=== PATIENT | male | born 1940 | race African-American/Black ===

== ENCOUNTER 2020-02-01 14:30 | Observation (INO) ==
[2020-02-01] MEDS ORDERED: INFLUENZA VIRUS VACCINE 0.5 ML SYRINGE IM ONE (17:30)
[2020-02-01] MEDS: DONEPEZIL 5 MG TABLET PO SCH (20:54)
[2020-02-01] MEDS: FLUTICASONE/SALMETEROL 250-50 DISKUS 14 DOSE INH SCH (20:54)
[2020-02-01] MEDS: GABAPENTIN 600 MG TABLET PO SCH (20:54)
[2020-02-01] MEDS ORDERED: rOPINIRole 1 MG TABLET PO SCH (21:00)
[2020-02-01] MEDS: METHOCARBAMOL 500 MG TABLET PO PRN (22:38)
[2020-02-02] MEDS: METOPROLOL TARTRATE 50 MG TABLET PO SCH ×4 (01:04→21:35)
[2020-02-02] MEDS: FLUTICASONE/SALMETEROL 250-50 DISKUS 14 DOSE INH SCH ×2 (08:45→21:33)
[2020-02-02] MEDS: metFORMIN 500 MG TABLET PO SCH ×2 (08:45→17:39)
[2020-02-02] MEDS: GABAPENTIN 600 MG TABLET PO SCH ×3 (08:45→21:33)
[2020-02-02] MEDS ORDERED: METHOCARBAMOL 500 MG TABLET PO PRN (12:18)
[2020-02-02] MEDS ORDERED: ALBUTEROL 2.5 MG/3 ML NEB RESP TX PRN (12:18)
[2020-02-02 12:49] LABS: Basophils % 0.6 % (0.0-0.8); Eosinophils # 0.1 10*3/uL (0.0-0.87); Eosinophils % 1.7 % (0.00-10.9); Hematocrit 38.5 VOL% (42.0-52.0); Hemoglobin 11.5 GM/DL (14.0-18.0); Immature Granulocytes % 0.2 %; Immature Granulocytes Absolute 0.01 #; Lymphocytes # 1.7 10*3/uL (1.4-4.0); Lymphocytes % 35.8 % (21.2-54.2); Mean Corpuscular HGB Conc 29.9 GM/DL (32-36); Mean Corpuscular Volume 68.8 FL (87-102); Monocytes % 12.2 % (1.7-12.7); Neutrophils % 49.5 % (38.7-73.9); Platelet Count 195 T/CUMM (130-400); Red Cell Distribution Width 20.5 % (9.3-17.3); White Blood Count 4.7 T/CUMM (4-12)
[2020-02-02 13:02] LABS: Alanine Aminotransferase 22 U/L (16-61); Albumin 3.6 G/DL (3.4-5.0); Alkaline Phosphatase 51 U/L (45-117); Aspartate Amino Transferase 13 U/L (0-37); Bilirubin,Total < 0.39 MG/DL (0.2-1.0); Blood Urea Nitrogen 20 MG/DL (7-18); Calcium 10.3 MG/DL (8.5-10.1); Estimated Glom Filtration Rate 68 ML/MIN; Glucose 117 MG/DL (74-106); Osmolality,Calculated 286.1 MOS/KG (273-304); Total Protein 7.7 G/DL (6.4-8.3)
[2020-02-02 13:03] LABS: Troponin I 0.017 NG/ML (0.00-0.045)
[2020-02-02] MEDS: amLODIPine 10 MG TABLET PO SCH (13:17)
[2020-02-02] MEDS: ASPIRIN EC 81 MG TABLET PO SCH (13:17)
[2020-02-02] MEDS ORDERED: DEXTROSE 50% 25 GM/50 ML VIAL IV PRN (14:12)
[2020-02-02] MEDS ORDERED: GLUCAGON 1 MG VIAL IM PRN (14:12)
[2020-02-02] MEDS ORDERED: GABAPENTIN 600 MG TABLET PO SCH (15:00)
[2020-02-02 15:29] LABS: % Iron Saturation 5.9 % (18-50); Ferritin 14.4 ng/ml (26-388)
[2020-02-02] MEDS: INSULIN LISPRO 100 UNIT/ML SUBCUT SCH ×2 (15:48→21:36)
[2020-02-02] MEDS ORDERED: FLUTICASONE/SALMETEROL 250-50 DISKUS 14 DOSE INH SCH (21:00)
[2020-02-02] MEDS ORDERED: RIVAROXABAN 20 MG TABLET PO SCH (21:00)
[2020-02-02] MEDS ORDERED: metFORMIN 500 MG TABLET PO SCH (21:00)
[2020-02-02] MEDS ORDERED: rOPINIRole 1 MG TABLET PO SCH (21:00)
[2020-02-02] MEDS: DONEPEZIL 5 MG TABLET PO SCH (21:33)
[2020-02-02] MEDS: METHOCARBAMOL 500 MG TABLET PO PRN (21:34)
[2020-02-02] MEDS: rOPINIRole 1 MG TABLET PO SCH (21:35)
[2020-02-02] MEDS: BRIMONIDINE 0.2% OPH SOLN 5 ML BOTTLE BOTH EYES SCH (22:24)
[2020-02-02] MEDS: DORZOLAMIDE/TIMOLOL OPH SOLN 10 ML BOTTLE BOTH EYES SCH (22:24)
[2020-02-03] MEDS: INSULIN LISPRO 100 UNIT/ML SUBCUT SCH ×4 (08:21→21:24)
[2020-02-03] MEDS: OLMESARTAN 20 MG TABLET PO SCH (08:43)
[2020-02-03] MEDS: ASPIRIN EC 81 MG TABLET PO SCH (08:43)
[2020-02-03] MEDS: TAMSULOSIN 0.4 MG CAPSULE PO SCH (08:43)
[2020-02-03] MEDS: GABAPENTIN 600 MG TABLET PO SCH ×3 (08:43→21:24)
[2020-02-03] MEDS: POTASSIUM CHLORIDE 20 MEQ TABLET PO SCH (08:44)
[2020-02-03] MEDS: metFORMIN 500 MG TABLET PO SCH ×2 (08:44→16:39)
[2020-02-03] MEDS: amLODIPine 10 MG TABLET PO SCH (08:44)
[2020-02-03] MEDS: FLUTICASONE/SALMETEROL 250-50 DISKUS 14 DOSE INH SCH ×2 (08:44→21:24)
[2020-02-03] MEDS: sitaGLIPtin 100 MG TABLET PO SCH (08:44)
[2020-02-03] MEDS: FUROSEMIDE 20 MG TABLET PO SCH (08:45)
[2020-02-03] MEDS: MONTELUKAST 10 MG TABLET PO SCH (08:45)
[2020-02-03] MEDS: BRIMONIDINE 0.2% OPH SOLN 5 ML BOTTLE BOTH EYES SCH ×2 (08:45→21:24)
[2020-02-03] MEDS: TRAVOPROST 0.004% OPH SOLN 2.5 ML BOTTLE BOTH EYES SCH (08:45)
[2020-02-03] MEDS: DORZOLAMIDE/TIMOLOL OPH SOLN 10 ML BOTTLE BOTH EYES SCH ×2 (08:45→21:24)
[2020-02-03] MEDS: PANTOPRAZOLE 40 MG TABLET PO SCH (08:45)
[2020-02-03] MEDS: METOPROLOL TARTRATE 50 MG TABLET PO SCH ×2 (08:46→21:24)
[2020-02-03 10:29] LABS: Basophils % 0.7 % (0.0-0.8); Eosinophils # 0.1 10*3/uL (0.0-0.87); Eosinophils % 2.9 % (0.00-10.9); Hematocrit 40.7 VOL% (42.0-52.0); Hemoglobin 11.6 GM/DL (14.0-18.0); Immature Granulocytes % 0.5 %; Immature Granulocytes Absolute 0.02 #; Lymphocytes # 1.4 10*3/uL (1.4-4.0); Lymphocytes % 32.3 % (21.2-54.2); Mean Corpuscular HGB Conc 28.5 GM/DL (32-36); Mean Platelet Volume 10.8 FL (9.6-12.0); Monocytes % 12.6 % (1.7-12.7); Platelet Count 153 T/CUMM (130-400); Red Blood Count 5.73 MC/CUMM (3.8-5.5); Red Cell Distribution Width 20.4 % (9.3-17.3); White Blood Count 4.4 T/CUMM (4-12)
[2020-02-03] MEDS: ENOXAPARIN 80 MG/0.8 ML SYRINGE SUBCUT SCH ×2 (11:59→21:24)
[2020-02-03] MEDS: DONEPEZIL 5 MG TABLET PO SCH (21:24)
[2020-02-03] MEDS: rOPINIRole 1 MG TABLET PO SCH (21:24)
[2020-02-04] MEDS: INSULIN LISPRO 100 UNIT/ML SUBCUT SCH ×4 (07:57→21:49)
[2020-02-04] MEDS: BRIMONIDINE 0.2% OPH SOLN 5 ML BOTTLE BOTH EYES SCH ×2 (09:18→21:48)
[2020-02-04] MEDS: TRAVOPROST 0.004% OPH SOLN 2.5 ML BOTTLE BOTH EYES SCH (09:18)
[2020-02-04] MEDS: DORZOLAMIDE/TIMOLOL OPH SOLN 10 ML BOTTLE BOTH EYES SCH ×2 (09:18→21:49)
[2020-02-04] MEDS: FLUTICASONE/SALMETEROL 250-50 DISKUS 14 DOSE INH SCH ×2 (09:18→21:48)
[2020-02-04] MEDS: ASPIRIN EC 81 MG TABLET PO SCH (09:19)
[2020-02-04] MEDS: MONTELUKAST 10 MG TABLET PO SCH (09:19)
[2020-02-04] MEDS: FUROSEMIDE 20 MG TABLET PO SCH (09:19)
[2020-02-04] MEDS: OLMESARTAN 20 MG TABLET PO SCH (09:19)
[2020-02-04] MEDS: ENOXAPARIN 80 MG/0.8 ML SYRINGE SUBCUT SCH ×2 (09:19→21:47)
[2020-02-04] MEDS: METOPROLOL TARTRATE 50 MG TABLET PO SCH ×2 (09:20→21:48)
[2020-02-04] MEDS: PANTOPRAZOLE 40 MG TABLET PO SCH (09:20)
[2020-02-04] MEDS: GABAPENTIN 600 MG TABLET PO SCH ×3 (09:20→21:48)
[2020-02-04] MEDS: TAMSULOSIN 0.4 MG CAPSULE PO SCH (09:20)
[2020-02-04] MEDS: amLODIPine 10 MG TABLET PO SCH (09:20)
[2020-02-04] MEDS: sitaGLIPtin 100 MG TABLET PO SCH (09:20)
[2020-02-04] MEDS: POTASSIUM CHLORIDE 20 MEQ TABLET PO SCH (09:20)
[2020-02-04] MEDS: metFORMIN 500 MG TABLET PO SCH ×2 (09:20→16:20)
[2020-02-04 11:23] LABS: Basophils # 0.1 10*3/uL (0.0-0.2); Eosinophils # 0.1 10*3/uL (0.0-0.87); Eosinophils % 2.3 % (0.00-10.9); Hematocrit 37.5 VOL% (42.0-52.0); Hemoglobin 11.3 GM/DL (14.0-18.0); Immature Granulocytes % 0.4 %; Immature Granulocytes Absolute 0.02 #; Lymphocytes # 1.7 10*3/uL (1.4-4.0); Lymphocytes % 34.3 % (21.2-54.2); Mean Corpuscular HGB Conc 30.1 GM/DL (32-36); Mean Corpuscular Volume 68.7 FL (87-102); Mean Platelet Volume 10.9 FL (9.6-12.0); Monocytes % 11.9 % (1.7-12.7); Neutrophils % 50.1 % (38.7-73.9); Platelet Count 184 T/CUMM (130-400); Red Blood Count 5.46 MC/CUMM (3.8-5.5); Red Cell Distribution Width 20.1 % (9.3-17.3); White Blood Count 4.8 T/CUMM (4-12)
[2020-02-04 11:35] LABS: Alanine Aminotransferase 18 U/L (16-61); Albumin 3.4 G/DL (3.4-5.0); Alkaline Phosphatase 49 U/L (45-117); Aspartate Amino Transferase 15 U/L (0-37); Bilirubin,Total < 0.39 MG/DL (0.2-1.0); Blood Urea Nitrogen 21 MG/DL (7-18); Calcium 10.2 MG/DL (8.5-10.1); Estimated Glom Filtration Rate 62 ML/MIN; Glucose 123 MG/DL (74-106); Osmolality,Calculated 278.7 MOS/KG (273-304); Total Protein 7.6 G/DL (6.4-8.3)
[2020-02-04] MEDS: METHOCARBAMOL 500 MG TABLET PO PRN (21:47)
[2020-02-04] MEDS: rOPINIRole 1 MG TABLET PO SCH (21:47)
[2020-02-04] MEDS: DONEPEZIL 5 MG TABLET PO SCH (21:48)
[2020-02-05] MEDS ORDERED: traMADol 50 MG TABLET PO PRN (00:17)
[2020-02-05] MEDS ORDERED: diphenhydrAMINE CAP 25 MG CAPSULE PO ONE (08:06)
[2020-02-05] MEDS ORDERED: DIAZEPAM 5 MG TABLET PO ONE (08:06)
[2020-02-05] MEDS ORDERED: HEPARIN/NACL 0.9% 2 UNITS/ML 1,000 ML IV ONE (08:07)
[2020-02-05] MEDS ORDERED: LIDOCAINE 1% 20 ML VIAL ONE (08:08)
[2020-02-05] MEDS: metFORMIN 500 MG TABLET PO SCH (08:15)
[2020-02-05] MEDS: INSULIN LISPRO 100 UNIT/ML SUBCUT SCH ×2 (08:23→13:02)
[2020-02-05] MEDS ORDERED: NITROGLYCERIN DRIP 50 MG/250 ML BOTTLE IV ONE (08:25)
[2020-02-05] MEDS ORDERED: VERAPAMIL 5 MG/2 ML VIAL ONE (08:25)
[2020-02-05] MEDS ORDERED: MIDAZOLAM 2 MG/2 ML VIAL ONE (08:25)
[2020-02-05] MEDS ORDERED: fentaNYL 100 MCG/2 ML VIAL ONE (08:25)
[2020-02-05] MEDS ORDERED: SODIUM CHLORIDE 0.9% 1,000 ML IV SCH (08:30)
[2020-02-05] MEDS ORDERED: ENOXAPARIN 60 MG/0.6 ML SYRINGE ONE (08:42)
[2020-02-05] MEDS ORDERED: ONDANSETRON 4 MG/2 ML VIAL IV PRN (09:09)
[2020-02-05] MEDS ORDERED: ACETAMINOPHEN 325 MG TABLET PO PRN (09:09)
[2020-02-05] MEDS: PANTOPRAZOLE 40 MG TABLET PO SCH (10:58)
[2020-02-05] MEDS: ASPIRIN EC 81 MG TABLET PO SCH (10:58)
[2020-02-05] MEDS: POTASSIUM CHLORIDE 20 MEQ TABLET PO SCH (10:58)
[2020-02-05] MEDS: MONTELUKAST 10 MG TABLET PO SCH (10:58)
[2020-02-05] MEDS: GABAPENTIN 600 MG TABLET PO SCH ×2 (10:58→14:12)
[2020-02-05] MEDS: sitaGLIPtin 100 MG TABLET PO SCH (10:59)
[2020-02-05] MEDS: OLMESARTAN 20 MG TABLET PO SCH (10:59)
[2020-02-05] MEDS: TAMSULOSIN 0.4 MG CAPSULE PO SCH (10:59)
[2020-02-05] MEDS: ENOXAPARIN 80 MG/0.8 ML SYRINGE SUBCUT SCH (11:00)
[2020-02-05] MEDS: FLUTICASONE/SALMETEROL 250-50 DISKUS 14 DOSE INH SCH (11:00)
[2020-02-05] MEDS: METOPROLOL TARTRATE 50 MG TABLET PO SCH (11:00)
[2020-02-05] MEDS: FUROSEMIDE 20 MG TABLET PO SCH (11:00)
[2020-02-05] MEDS: amLODIPine 10 MG TABLET PO SCH (11:01)
[2020-02-05] MEDS: DORZOLAMIDE/TIMOLOL OPH SOLN 10 ML BOTTLE BOTH EYES SCH (11:03)
[2020-02-05] MEDS: TRAVOPROST 0.004% OPH SOLN 2.5 ML BOTTLE BOTH EYES SCH (11:03)
[2020-02-05] MEDS: BRIMONIDINE 0.2% OPH SOLN 5 ML BOTTLE BOTH EYES SCH (11:03)
[2020-02-05 14:13] VITALS: BP 120/59
== END 2020-02-05 14:44 | disposition home or self-care (01) ==
LOC: N.TELES 16:47 → INTOOBSV 16:47
PROVIDERS: ADMIT Internal Medicine Cardiovascular Disease; ATTEND Internal Medicine Cardiovascular Disease
PROC: CLCCHCL (ICD-10-PCS; 2020-02-05 11:15)

== ENCOUNTER 2020-05-27 08:26 | Inpatient (IN) ==
[2020-05-27] MEDS ORDERED: MAGNESIUM SULF RIDER 2 GM in PREMIX 1 EACH IV STA (09:01)
[2020-05-27] MEDS: AMIODARONE INJ 450 MG in DEXTROSE 5% 241 ML IV SCH ×4 (09:08→16:57)
[2020-05-27] MEDS ORDERED: diphenhydrAMINE CAP 25 MG CAPSULE PO PRN (09:22)
[2020-05-27] MEDS ORDERED: guaiFENesin/DM ER 600-30 MG TABLET PO PRN (09:22)
[2020-05-27] MEDS ORDERED: ACETAMINOPHEN 325 MG TABLET PO PRN (09:22)
[2020-05-27] MEDS ORDERED: BISACODYL 5 MG TABLET PO PRN (09:22)
[2020-05-27] MEDS ORDERED: hydrALAZINE 20 MG/1 ML VIAL IV PRN (09:22)
[2020-05-27] MEDS ORDERED: ALUMINUM/MAGNES/SIMETH MAX STR 30 ML UDCUP PO PRN (09:22)
[2020-05-27] MEDS ORDERED: MAGNESIUM SULF RIDER 2 GM in PREMIX 1 EACH IV PRN (09:22)
[2020-05-27] MEDS ORDERED: ZALEPLON 5 MG CAPSULE PO PRN (09:22)
[2020-05-27] MEDS ORDERED: MORPHINE 4 MG/1 ML VIAL IV PRN (09:22)
[2020-05-27] MEDS ORDERED: CALCIUM CARBONATE CHEW 500 MG TABLET PO PRN (09:22)
[2020-05-27] MEDS ORDERED: SIMETHICONE CHEW 125 MG TABLET PO PRN (09:22)
[2020-05-27] MEDS ORDERED: LACTULOSE 20 GM/30 ML UDCUP PO PRN (09:22)
[2020-05-27] MEDS ORDERED: POTASSIUM CHLORIDE 20 MEQ TABLET PO PRN (09:22)
[2020-05-27] MEDS ORDERED: MAGNESIUM SULF RIDER 4 GM in PREMIX 1 EACH IV PRN (09:22)
[2020-05-27] MEDS ORDERED: AMIODARONE INJ 150 MG in DEXTROSE 5% 100 ML IV ONE (09:27)
[2020-05-27] MEDS ORDERED: GLUCAGON 1 MG VIAL IM PRN (09:29)
[2020-05-27] MEDS ORDERED: DEXTROSE 50% 25 GM/50 ML VIAL IV PRN (09:29)
[2020-05-27 09:31] LABS: PT Patient Result 10.8 SECS (9.8-11.9); Partial Thromboplastin Time 22.1 SECS (23.9-33.8)
[2020-05-27 09:41] LABS: Basophils % 0.3 % (0.0-0.8); Eosinophils # 0.1 10*3/uL (0.0-0.87); Eosinophils % 1.9 % (0.00-10.9); Hematocrit 39.1 VOL% (42.0-52.0); Immature Granulocytes % 0.5 %; Immature Granulocytes Absolute 0.03 #; Lymphocytes # 1.1 10*3/uL (1.4-4.0); Lymphocytes % 19.5 % (21.2-54.2); Mean Corpuscular HGB Conc 29.2 GM/DL (32-36); Mean Corpuscular Volume 70.1 FL (87-102); Monocytes % 7.4 % (1.7-12.7); Neutrophils % 70.4 % (38.7-73.9); Platelet Count 142 T/CUMM (130-400); Red Blood Count 5.58 MC/CUMM (3.8-5.5); Red Cell Distribution Width 20.8 % (9.3-17.3); White Blood Count 5.8 T/CUMM (4-12)
[2020-05-27 09:42] LABS: Hemoglobin 11.4 GM/DL (14.0-18.0)
[2020-05-27 09:50] LABS: Alanine Aminotransferase 218 U/L (16-61); Albumin 3.1 G/DL (3.4-5.0); Alkaline Phosphatase 75 U/L (45-117); Aspartate Amino Transferase 270 U/L (0-37); Bilirubin,Total < 0.39 MG/DL (0.2-1.0); Blood Urea Nitrogen 20 MG/DL (7-18); Calcium 9.8 MG/DL (8.5-10.1); Carbon Dioxide 22 MMOL/L (21-32); Estimated Glom Filtration Rate 64 ML/MIN; Glucose 138 MG/DL (74-106); Osmolality,Calculated 277.8 MOS/KG (273-304); Sodium 137 MMOL/L (136-145); Total Protein 7.2 G/DL (5.0-7.5)
[2020-05-27 09:58] LABS: Hypochromasia Slight; Microcytosis Slight; Platelet Estimate Adequate
[2020-05-27] MEDS ORDERED: ALBUTEROL 2.5 MG/3 ML NEB RESP TX PRN (10:58)
[2020-05-27 10:59] VITALS: BP 121/60
[2020-05-27] MEDS: INSULIN LISPRO 100 UNIT/ML SUBCUT SCH ×3 (11:18→20:43)
[2020-05-27 13:15] LABS: Troponin I 0.194 NG/ML (0.00-0.045)
[2020-05-27] MEDS: GABAPENTIN 600 MG TABLET PO SCH ×2 (14:20→20:31)
[2020-05-27] MEDS: rOPINIRole 1 MG TABLET PO SCH ×2 (14:20→20:31)
[2020-05-27] MEDS ORDERED: DIAZEPAM 5 MG TABLET PO PRN (15:29)
[2020-05-27 15:32] LABS: Troponin I 0.263 NG/ML (0.00-0.045)
[2020-05-27 16:56] LABS: Hepatitis B Core IgM Quant < 0.05 Index; Hepatitis B Surface Ag Quant < 0.10 Index; Hepatitis B Surface Ag Result Non-Reactive (NonReactive); Hepatitis C Virus Ab Result Non-Reactive (NonReactive)
[2020-05-27] MEDS: OLMESARTAN 20 MG TABLET PO SCH (17:32)
[2020-05-27 17:47] LABS: Barbiturates Screen,Urine Negative (Negative); Benzodiazepines Screen,Urine Positive (Negative); Cannabinoid Screen,Urine Negative (Negative); Opiate Screen,Urine Positive (Negative); Phencyclidine Screen,Urine Negative (Negative)
[2020-05-27 18:48] LABS: Troponin I 0.398 NG/ML (0.00-0.045)
[2020-05-27] MEDS: FLUTICASONE/SALMETEROL 250-50 DISKUS 14 DOSE INH SCH (20:31)
[2020-05-27] MEDS: AMIODARONE 200 MG TABLET PO SCH (20:31)
[2020-05-27] MEDS: METOPROLOL TARTRATE 25 MG TABLET PO SCH (20:31)
[2020-05-27] MEDS: RIVAROXABAN 20 MG TABLET PO SCH (20:31)
[2020-05-27] MEDS: MAGNESIUM OXIDE 400 MG TABLET PO SCH (20:31)
[2020-05-27] MEDS: LATANOPROST 0.005% OPH SOLN 2.5 ML BOTTLE BOTH EYES SCH (20:32)
[2020-05-27] MEDS: DORZOLAMIDE/TIMOLOL OPH SOLN 10 ML BOTTLE BOTH EYES SCH (20:32)
[2020-05-27] MEDS ORDERED: DONEPEZIL 5 MG TABLET PO SCH (21:00)
[2020-05-27] MEDS ORDERED: metFORMIN 500 MG TABLET PO SCH (21:00)
[2020-05-28 05:49] LABS: Basophils % 0.3 % (0.0-0.8); Eosinophils # 0.1 10*3/uL (0.0-0.87); Eosinophils % 2.2 % (0.00-10.9); Hematocrit 37.9 VOL% (42.0-52.0); Hemoglobin 11.3 GM/DL (14.0-18.0); Immature Granulocytes % 0.2 %; Immature Granulocytes Absolute 0.01 #; Lymphocytes # 1.5 10*3/uL (1.4-4.0); Lymphocytes % 24.7 % (21.2-54.2); Mean Corpuscular HGB Conc 29.8 GM/DL (32-36); Mean Corpuscular Volume 69.3 FL (87-102); Monocytes % 10.7 % (1.7-12.7); Neutrophils % 61.9 % (38.7-73.9); Red Blood Count 5.47 MC/CUMM (3.8-5.5); Red Cell Distribution Width 20.6 % (9.3-17.3); White Blood Count 5.9 T/CUMM (4-12)
[2020-05-28 05:56] LABS: Platelet Count 171 T/CUMM (130-400)
[2020-05-28 06:01] LABS: Calcium 9.6 MG/DL (8.5-10.1); Osmolality,Calculated 282.3 MOS/KG (273-304); Potassium 3.9 MMOL/L (3.5-5.1)
[2020-05-28 06:04] LABS: Alanine Aminotransferase 135 U/L (16-61); Alkaline Phosphatase 60 U/L (45-117); Aspartate Amino Transferase 90 U/L (0-37); Bilirubin,Direct < 0.100 MG/DL (0.0-0.20); Bilirubin,Indirect 0.3 MG/DL (0.0-1.0); Bilirubin,Total < 0.39 MG/DL (0.2-1.0); Total Protein 6.7 G/DL (6.4-8.2)
[2020-05-28 06:13] LABS: Hypochromasia Slight
[2020-05-28 06:14] LABS: Microcytosis Slight; Platelet Estimate Adequate
[2020-05-28] MEDS: FLUTICASONE/SALMETEROL 250-50 DISKUS 14 DOSE INH SCH ×2 (08:21→20:14)
[2020-05-28] MEDS: CHLORTHALIDONE 25 MG TABLET PO SCH (08:22)
[2020-05-28] MEDS: sitaGLIPtin 100 MG TABLET PO SCH (08:22)
[2020-05-28] MEDS: MONTELUKAST 10 MG TABLET PO SCH (08:22)
[2020-05-28] MEDS: PANTOPRAZOLE 40 MG TABLET PO SCH (08:22)
[2020-05-28] MEDS: ASPIRIN EC 81 MG TABLET PO SCH (08:22)
[2020-05-28] MEDS: DORZOLAMIDE/TIMOLOL OPH SOLN 10 ML BOTTLE BOTH EYES SCH ×2 (08:22→20:14)
[2020-05-28] MEDS: GABAPENTIN 600 MG TABLET PO SCH ×3 (08:22→20:15)
[2020-05-28] MEDS: rOPINIRole 1 MG TABLET PO SCH ×3 (08:22→20:15)
[2020-05-28] MEDS: OLMESARTAN 20 MG TABLET PO SCH (08:22)
[2020-05-28] MEDS: TAMSULOSIN 0.4 MG CAPSULE PO SCH (08:22)
[2020-05-28] MEDS: AMIODARONE 200 MG TABLET PO SCH ×2 (08:22→20:14)
[2020-05-28] MEDS: MAGNESIUM OXIDE 400 MG TABLET PO SCH ×2 (08:23→20:15)
[2020-05-28] MEDS: METOPROLOL TARTRATE 25 MG TABLET PO SCH ×2 (08:23→20:15)
[2020-05-28] MEDS: amLODIPine 10 MG TABLET PO SCH (08:23)
[2020-05-28] MEDS: AMIODARONE INJ 450 MG in DEXTROSE 5% 241 ML IV SCH (08:34)
[2020-05-28] MEDS: INSULIN LISPRO 100 UNIT/ML SUBCUT SCH ×4 (08:34→20:14)
[2020-05-28 12:47] LABS: Troponin I 0.185 NG/ML (0.00-0.045)
[2020-05-28] MEDS: RIVAROXABAN 20 MG TABLET PO SCH (20:15)
[2020-05-28] MEDS: LATANOPROST 0.005% OPH SOLN 2.5 ML BOTTLE BOTH EYES SCH (20:15)
[2020-05-29 05:45] LABS: Basophils % 0.6 % (0.0-0.8); Eosinophils # 0.2 10*3/uL (0.0-0.87); Eosinophils % 4.7 % (0.00-10.9); Hematocrit 36.1 VOL% (42.0-52.0); Hemoglobin 10.8 GM/DL (14.0-18.0); Immature Granulocytes % 0.4 %; Immature Granulocytes Absolute 0.02 #; Lymphocytes # 1.6 10*3/uL (1.4-4.0); Lymphocytes % 31.7 % (21.2-54.2); Mean Corpuscular HGB Conc 29.9 GM/DL (32-36); Mean Corpuscular Volume 69.7 FL (87-102); Monocytes % 14.3 % (1.7-12.7); Neutrophils % 48.3 % (38.7-73.9); Platelet Count 155 T/CUMM (130-400); Red Blood Count 5.18 MC/CUMM (3.8-5.5); Red Cell Distribution Width 20.5 % (9.3-17.3); White Blood Count 4.9 T/CUMM (4-12)
[2020-05-29 06:04] LABS: Osmolality,Calculated 277.7 MOS/KG (273-304); Potassium 4.2 MMOL/L (3.5-5.1)
[2020-05-29 06:13] LABS: Hypochromasia 1+
[2020-05-29 06:14] LABS: Microcytosis 1+; Ovalocytes Slight; Platelet Estimate Adequate
[2020-05-29 07:42] LABS: Alanine Aminotransferase 91 U/L (16-61); Albumin 2.8 G/DL (3.4-5.0); Alkaline Phosphatase 55 U/L (45-117); Aspartate Amino Transferase 42 U/L (0-37); Bilirubin,Direct < 0.050 MG/DL (0.0-0.20); Bilirubin,Indirect 0.3 MG/DL (0.0-1.0); Bilirubin,Total < 0.39 MG/DL (0.2-1.0); Total Protein 6.1 G/DL (6.4-8.2)
[2020-05-29] MEDS: OLMESARTAN 20 MG TABLET PO SCH (10:05)
[2020-05-29] MEDS: INSULIN LISPRO 100 UNIT/ML SUBCUT SCH ×4 (10:05→20:25)
[2020-05-29] MEDS: MAGNESIUM OXIDE 400 MG TABLET PO SCH ×2 (10:05→20:24)
[2020-05-29] MEDS: rOPINIRole 1 MG TABLET PO SCH ×3 (10:06→20:24)
[2020-05-29] MEDS: ASPIRIN EC 81 MG TABLET PO SCH (10:06)
[2020-05-29] MEDS: AMIODARONE 200 MG TABLET PO SCH ×2 (10:06→20:24)
[2020-05-29] MEDS: MONTELUKAST 10 MG TABLET PO SCH (10:06)
[2020-05-29] MEDS: GABAPENTIN 600 MG TABLET PO SCH ×3 (10:06→20:24)
[2020-05-29] MEDS: TAMSULOSIN 0.4 MG CAPSULE PO SCH (10:07)
[2020-05-29] MEDS: CHLORTHALIDONE 25 MG TABLET PO SCH (10:07)
[2020-05-29] MEDS: sitaGLIPtin 100 MG TABLET PO SCH (10:07)
[2020-05-29] MEDS: PANTOPRAZOLE 40 MG TABLET PO SCH (10:07)
[2020-05-29] MEDS: METOPROLOL TARTRATE 25 MG TABLET PO SCH ×2 (10:07→20:24)
[2020-05-29] MEDS: DORZOLAMIDE/TIMOLOL OPH SOLN 10 ML BOTTLE BOTH EYES SCH ×2 (10:07→20:24)
[2020-05-29] MEDS: amLODIPine 10 MG TABLET PO SCH (10:15)
[2020-05-29] MEDS: ONDANSETRON 4 MG/2 ML VIAL IV PRN ×2 (10:49→16:51)
[2020-05-29] MEDS: FLUTICASONE/SALMETEROL 250-50 DISKUS 14 DOSE INH SCH ×2 (11:25→20:23)
[2020-05-29] MEDS: RIVAROXABAN 20 MG TABLET PO SCH (20:24)
[2020-05-29] MEDS: LATANOPROST 0.005% OPH SOLN 2.5 ML BOTTLE BOTH EYES SCH (20:33)
[2020-05-30 05:44] LABS: Basophils % 0.4 % (0.0-0.8); Eosinophils # 0.2 10*3/uL (0.0-0.87); Eosinophils % 4.1 % (0.00-10.9); Hematocrit 35.1 VOL% (42.0-52.0); Hemoglobin 10.6 GM/DL (14.0-18.0); Immature Granulocytes % 0.4 %; Immature Granulocytes Absolute 0.02 #; Lymphocytes # 1.5 10*3/uL (1.4-4.0); Lymphocytes % 32.1 % (21.2-54.2); Mean Corpuscular HGB Conc 30.2 GM/DL (32-36); Mean Corpuscular Volume 69.5 FL (87-102); Mean Platelet Volume 11.5 FL (9.6-12.0); Monocytes % 12.2 % (1.7-12.7); Neutrophils % 50.8 % (38.7-73.9); Platelet Count 167 T/CUMM (130-400); Red Blood Count 5.05 MC/CUMM (3.8-5.5); Red Cell Distribution Width 20.1 % (9.3-17.3); White Blood Count 4.7 T/CUMM (4-12)
[2020-05-30 05:58] LABS: Calcium 10.2 MG/DL (8.5-10.1); Osmolality,Calculated 280.5 MOS/KG (273-304); Potassium 4.4 MMOL/L (3.5-5.1)
[2020-05-30 06:06] LABS: Hypochromasia 1+; Microcytosis 1+; Platelet Estimate Adequate
[2020-05-30] MEDS: INSULIN LISPRO 100 UNIT/ML SUBCUT SCH ×2 (08:38→11:46)
[2020-05-30] MEDS: rOPINIRole 1 MG TABLET PO SCH (09:28)
[2020-05-30] MEDS: MAGNESIUM OXIDE 400 MG TABLET PO SCH (09:28)
[2020-05-30] MEDS: CHLORTHALIDONE 25 MG TABLET PO SCH (09:29)
[2020-05-30] MEDS: GABAPENTIN 600 MG TABLET PO SCH (09:29)
[2020-05-30] MEDS: ASPIRIN EC 81 MG TABLET PO SCH (09:29)
[2020-05-30] MEDS: FLUTICASONE/SALMETEROL 250-50 DISKUS 14 DOSE INH SCH (09:29)
[2020-05-30] MEDS: METOPROLOL TARTRATE 25 MG TABLET PO SCH (09:29)
[2020-05-30] MEDS: MONTELUKAST 10 MG TABLET PO SCH (09:29)
[2020-05-30] MEDS: OLMESARTAN 20 MG TABLET PO SCH (09:29)
[2020-05-30] MEDS: DORZOLAMIDE/TIMOLOL OPH SOLN 10 ML BOTTLE BOTH EYES SCH (09:29)
[2020-05-30] MEDS: TAMSULOSIN 0.4 MG CAPSULE PO SCH (09:29)
[2020-05-30] MEDS: PANTOPRAZOLE 40 MG TABLET PO SCH (09:29)
[2020-05-30] MEDS: sitaGLIPtin 100 MG TABLET PO SCH (09:29)
[2020-05-30] MEDS: AMIODARONE 200 MG TABLET PO SCH (09:29)
== END 2020-05-30 12:25 | disposition home or self-care (01) | DRG 309 ==
LOC: EDUNIT# → EDBD → N.ED 08:26 → N.EDINP 09:22 → N.ICU 10:27
PROVIDERS: ADMIT Internal Medicine Cardiovascular Disease; ATTEND Internal Medicine Cardiovascular Disease